=== PATIENT | female | born 1985 | race Caucasian/White ===

== ENCOUNTER 2018-03-05 09:10 | Emergency (ER) | payer BC ==
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
== END 2018-03-05 10:15 | disposition home or self-care (01) ==
LOC: MADERS 09:10
DX: S43.401A Unspecified sprain of right shoulder joint, initial encounter (principal); V89.2XXA Person injured in unspecified motor-vehicle accident, traffic, initial encounter